=== PATIENT | female | born 1995 | race Caucasian/White ===

== ENCOUNTER 2018-01-02 10:01 | Emergency (ER) | payer MEDICAID ==
[~2018-01-02] VITALS: Ht 165.1 cm; Wt 43.5 kg
[~2018-01-02 10:01] MED LIST: GUAI473S11 PO; HYDR-565 PO; ONDA4TAB59 PO; ONDA4TAB6 PO; ONDA8TAB13 PO
[2018-01-02] MEDS ORDERED: dexamethasone sod phosphate 10mg/ml inj IM STA (11:00)
[2018-01-02] MEDS ORDERED: ketorolac trometh inj. 60 MG/2 ML VIAL IM ONE (11:00)
[2018-01-02] MEDS ORDERED: NAPR-56 PO (11:38)
[2018-01-02] MEDS ORDERED: DEC4T PO (11:38)
[2018-01-02 11:45] VITALS: BP 97/61
== END 2018-01-02 11:47 | disposition home or self-care (01) ==
LOC: ER 10:01
DX: M54.41 Lumbago with sciatica, right side (principal); M54.42 Lumbago with sciatica, left side; G89.29 Other chronic pain; Z56.0 Unemployment, unspecified; Z79.899 Other long term (current) drug therapy
CPT/HCPCS: 96372; 99284; J1100; J1885

== ENCOUNTER 2018-01-07 16:40 | Emergency (ER) | payer MEDICAID ==
[~2018-01-07] VITALS: Ht 165.1 cm; Wt 43.6 kg
[~2018-01-07 16:40] MED LIST changes: +DEC4T PO; +NAPR-56 PO
[2018-01-07] MEDS ORDERED: LORazepam 2 mg/ml vial IM ONE (17:00)
[2018-01-07] MEDS ORDERED: ketorolac trometh inj. 60 MG/2 ML VIAL IM ONE (17:00)
[2018-01-07] MEDS ORDERED: NAPR-1154 PO (17:07)
[2018-01-07 18:06] VITALS: BP 115/72
== END 2018-01-07 18:08 | disposition home or self-care (01) ==
LOC: ER 16:40
DX: M54.5 Low back pain (principal); G89.29 Other chronic pain; Z86.14 Personal history of Methicillin resistant Staphylococcus aureus infection; Z79.899 Other long term (current) drug therapy; Z56.0 Unemployment, unspecified
CPT/HCPCS: 96372; 99284; J1885; J2060

== ENCOUNTER 2018-06-19 02:11 | Emergency (ER) | payer MEDICAID ==
[~2018-06-19] VITALS: Ht 165.1 cm; Wt 45.5 kg
[~2018-06-19 02:11] MED LIST changes: +HYDR-4353 PO; -HYDR-565 PO; +NAPR-1154 PO; -NAPR-56 PO
[2018-06-19 02:13] VITALS: BP 127/81
[2018-06-19] MEDS ORDERED: AMOX500C2 PO (02:22)
[2018-06-19] MEDS ORDERED: COROTSUS OT (02:22)
[2018-06-19] MEDS ORDERED: amoxicillin 250mg capsule PO ONE (02:25)
== END 2018-06-19 02:42 | disposition home or self-care (01) ==
LOC: ER 02:12
DX: H60.92 Unspecified otitis externa, left ear (principal); G89.29 Other chronic pain; Z86.14 Personal history of Methicillin resistant Staphylococcus aureus infection; Z79.2 Long term (current) use of antibiotics; Z79.899 Other long term (current) drug therapy; Z56.0 Unemployment, unspecified
CPT/HCPCS: 99283